=== PATIENT | male | born 1970 | race Caucasian/White ===

== ENCOUNTER 2018-08-12 11:52 | Emergency (ER) | payer OTHER, SELFPAY ==
[2018-08-12 11:53] VITALS: BP 153/94; PULSE 78; RESP 16; TEMP 36.2; O2SAT 97; BMI 29.5
--- NOTE | 2018-08-12 12:20 | ED.VIS.GEN ---
History of Present Illness Chief Complaint: Upper Extremity Injury Informant: Patient Onset: Hours - <1 Context: Sudden Onset - caught himself while almost falling off a ladder Quality: pain and felt a pop Location: distal right anterior arm Current Severity: Mild Maximum Severity: Moderate Worsened by: flexing arm Relieved by: remaining still, ice pack application Associated Symptoms: none Narrative: Patient states as soon as he caught himself, he felt pain and a pop at his distal biceps and states that there was a valley in that area, like he ruptured the tendon. It also felt like the tendon traveled up his arm. He notes with this feels like because he had a similar rupture of the biceps on the right side in the past, but it was 1 of the proximal tendons. He did not have surgery for that but saw Dr. Reyes. Past Medical History - Allergies and Home Meds Allergies/Adverse Reactions: Allergies Penicillins [PCN] Allergy (Verified 08/12/18 11:55) Hives Primary Care Physician: Geno Patiño NP-C [Primary Care Provider] - Past Medical History: None Smoking Status: Current every day smoker Review of Systems Musculoskeletal: Reports: Extremity Pain. Denies: Back pain Neurological: Denies: Weakness, Parasthesia, Numbness Physical Exam Vital Signs/Narrative: Vital Signs Temp Pulse Resp BP Pulse Ox 08/12/18 11:53 97.2 F L 78 16 153/94 H 97 Inital Vital Signs reviewed: Yes General: Well nourished, Well developed Head: Normocephalic, Atraumatic Extremities: Tenderness - Left bicep, which is bulging compared with the right, along with deficit where the distal tendon should be inserting at the antecubital fossa. No bony tenderness., - - Full range of motion, able to flex the left bicep but with pain. Skin: Normal color, No rash, No Trauma, - - Erythematous volar left forearm and arm where her ice pack has been applied Neurological: Alert, Oriented x3, Cranial nerves II-XII grossly intact, Normal Strength, Normal Sensation Diagnostic/Tx/Re-eval - Medical Decision Making Patient placed in a sling and given naproxen, discussed with Dr. Khan who agrees with this management, analgesics, and close outpatient evaluation just after the weekend. ED Disposition - Plan for ED Patient: Disposition: Home or Assisted Living Chief Complaint: Upper Extremity Injury Diagnosis: Rupture of left distal biceps tendon Instructions: ED Contusion Upper Ext Prescriptions: traMADol [Ultram] 50 mg PO Q4H PRN PRN 2 Days #10 tab PRN Reason: Pain Referrals: Jay Khan MD [STAFF PHYSICIAN] - 08/14/18 (call for appt) Additional Instructions: -Use sling as needed. No lifting with left upper extremity. -Take daily ibuprofen, and a prescription as needed for additional pain. May add Tylenol to this if needed. -Ice pack to affected area as needed.
[2018-08-12] MEDS: Naproxen 500 MG Tablet PO (12:26)
[2018-08-12 12:41] VITALS: RESP 16
--- NOTE | 2018-08-12 12:41 | ED.RN ---
REVIEWED D/C INSTRUCTIONS, FOLLOW UP CARE, PRESCRIPTION, AND S/S THAT WOULD WARRANT A RETURN TO THE ED WITH PT. PT VERBALIZED AN UNDERSTANDING AND DENIES FURTHER QUESTIONS FOR THIS RN. PT SKIN P/W/D, RESP EVEN AND UNLABORED, PT A&O X 3, NO DISTRESS NOTED.
== END 2018-08-12 12:43 | disposition home or self-care (01) ==
LOC: ED 12:42
PROVIDERS: Emergency Provider Emergency Medicine; Family Provider Nurse Practitioner; PCP Nurse Practitioner
DX: S46.211A Strain of muscle, fascia and tendon of other parts of biceps, right arm, initial encounter (principal); F17.200 Nicotine dependence, unspecified, uncomplicated; Z79.899 Other long term (current) drug therapy; W11.XXXA Fall on and from ladder, initial encounter; Y93.89 Activity, other specified; Y92.89 Other specified places as the place of occurrence of the external cause; Y99.8 Other external cause status
CPT/HCPCS: 99283

== ENCOUNTER 2018-08-22 11:38 | Day surgery (SDC) | payer OTHER, SELFPAY ==
[2018-08-22] VITALS (7 sets, daily range): BP systolic 100–127; BP diastolic 61–85; PULSE 58–66; RESP 14–16; TEMP 36.2–36.3; O2SAT 92–98; BMI 29.5
--- NOTE | 2018-08-22 13:30 | RAD_ITS ---
STUDY: X-RAY - LEFT ELBOW REASON FOR EXAM: Male, 48 years old. Intraoperative assessment TECHNIQUE: One limited view of the elbow was obtained. COMPARISON: None. FINDINGS: A limited image of the left elbow obtained intraoperatively shows a small piece of hardware adjacent to the proximal radius and ulna. Fluoroscopy time 5.8 seconds. Cumulative dose 0.21 mGy. RAD/Elbow 2 Views IMPRESSION: A limited view of the left elbow was obtained intraoperatively. Electronically Signed: Rocio Arizmendi MD at 19:48 EST Tel Direct: [phone], Service support ,
[2018-08-22] MEDS: Bupivacaine Mpf 0.5% 30 ML VIAL (15:33)
--- NOTE | 2018-08-22 16:04 | PCM.OPRPT ---
Report of Operation Date of Procedure: 08/22/18 Pre-Operative Diagnosis: Left distal biceps tendon rupture Post-Operative Diagnosis: Left distal biceps tendon rupture Surgery/Procedure Performed:: Left distal biceps tendon repair Description of Surgical Findings:: Site of pain was verified with fluoroscopy at the radial tuberosity city weighmaster: Vic Fine Type of Anesthesia:: General Anesthesiologist: Juan Silva Special Medications: 600 mg clindamycin Specimen's removed: None Estimated Blood Loss (mL): 5 mL Fluids Replaced: 1500 mL crystalloid Description of Procedure: On the date of the procedure patient's left upper extremity was marked in the preoperative area. Patient was taken back to the operating room where there transferred to the table in supine position. Anesthesia assumed control of the C-spine airway and remained to control throughout the remainder of the procedure. Anesthesia was administered using an LMA and general anesthetic. Left upper extremity was then prepped in a sterile fashion after all bony prominences identified well-padded. Surgeon scrubbed while the extremity was being prepped Upon reentering the room the left upper extremity was draped in a sterile orthopedic fashion draping out the entire upper extremity. Incision was marked out horizontally just distal to the antecubital fossa crease. Timeout was called and wound agreed upon the side, the site, the procedure be performed, patient's identity and antibiotics given. Incision was taken down through skin and blunt dissection was taken down to subcutaneous tissues fat down to fascia. Once we identified the tract of the biceps tendon rupture we could palpate distally to the radial tuberosity. We then palpated proximally and using retractors were able to identify the distal biceps tendon rupture. The tendon was pulled from the wound and an Arthrex FiberWire fiber loop was used to make a whipstitch using a fiber more passes. The sutures were then brought out the end in the end of the bulbous tendon was trimmed. The tendon was measured at 8 mm. At this time we then directed our attention distally. The wrist was placed in supination and Army-Kimball retractors were used to expose the radial tuberosity. No retractors were placed over the radial aspect of the radial neck. Once we palpated this area the guidewire was placed through the radial tuberosity. Live x-ray was used to verify placement of the pin and bicortical penetration. The initial pin was placed at the proximal edge of the tuberosity and we placed it once more at the central portion of the tuberosity using live fluoroscopy. Once this was in appropriate position the 8 mm acorn drill was used to drill the near cortex. The Endobutton was fastened into place and placed through both cortices. The Endobutton was flipped the elbow was flexed and the Endobutton was tightened down until the tendon was down into the bony trough. Once this was completed a free needle was used to tie the FiberWire back down on itself through the tendon. The wound was then copiously irrigated out with normal saline. The elbow was now allowed to go back into full extension. Wound was then closed with 2-0 Vicryl and Monocryl for final skin closure along with Steri-Strips. Xeroform dressing was placed. Compressive dressing was placed. Posterior splint was placed with elbow at 90 degrees. Patient was awakened by anesthesia and transferred to PACU for recovery. Postoperative plan patient will wear the splint for 2 weeks. He will come out of the splint for range of motion passive and active with physical therapy from weeks 2-6. At his 2-week postop visit we will begin strengthening. Grafts/Implants Used: Arthrex Endobutton - Complications None - Admit VTE Documentation VTE Present on Admission: No VTE Mechan Device Prophylaxis: SCD's VTE Pharm Prophylaxis ordered?: No Reason prophylaxis not ordered:: Treatment Not Indicated
--- NOTE | 2018-08-22 16:11 | OP.PCM_ITS ---
Report of Operation Date of Procedure: 08/22/18 Pre-Operative Diagnosis: Left distal biceps tendon rupture Post-Operative Diagnosis: Left distal biceps tendon rupture Surgery/Procedure Performed:: Left distal biceps tendon repair Description of Surgical Findings:: Site of pain was verified with fluoroscopy at the radial tuberosity program manager: Vic Fine Type of Anesthesia:: General Anesthesiologist: Juan Silva Special Medications: 600 mg clindamycin Specimen's removed: None Estimated Blood Loss (mL): 5 mL Fluids Replaced: 1500 mL crystalloid Description of Procedure: On the date of the procedure patient's left upper extremity was marked in the preoperative area. Patient was taken back to the operating room where there transferred to the table in supine position. Anesthesia assumed control of the C-spine airway and remained to control throughout the remainder of the procedure. Anesthesia was administered using an LMA and general anesthetic. Left upper extremity was then prepped in a sterile fashion after all bony p rominences identified well-padded. Surgeon scrubbed while the extremity was being prepped Upon reentering the room the left upper extremity was draped in a sterile orthopedic fashion draping out the entire upper extremity. Incision was marked out horizontally just distal to the antecubital fossa crease. Timeout was called and wound agreed upon the side, the site, the procedure be performed, pa tient's identity and antibiotics given. Incision was taken down through skin and blunt dissection was taken down to subcutaneous tissues fat down to fascia. Once we identified the tract of the biceps tendon rupture we could palpate distally to the radial tuberosity. We then palpated proximally and using retractors were able to identify the distal biceps tendon rupture. The tendon was pulled from the wound and an Arthrex FiberWire fiber loop was used to make a whipstitch using a fiber more passes. The sutures were then brought out the end in the end of the bulbous tendon was trimmed. The tendon was measured at 8 mm. At this time we then directed our attention distally. The wrist was placed in supination and Army-Terral retractors were used to expose the radial tuberosity. No retractors were placed over the radial aspect of the radial neck. Once we palpated this area the guidewire was placed through the radial tuberosity. Live x-ray was used to verify placement of the pin and bi cortical penetration. The initial pin was placed at the proximal edge of the tuberosity and we placed it once more at the central portion of the tuberosity using live fluoroscopy. Once this was in appropriate position the 8 mm acorn drill was used to drill the near cortex. The Endobutton was fastened into place and placed through both cortices. The Endobutton was flipped the elbow was flexed and the Endobutton was tightened down until the tendon was down into the bony trough. Once this was completed a free needle was used to tie the FiberWire back down on itself through the tendon. The wound was then copiously irrigated out with normal saline. The elbow was now allowed to go back into full extension. Wound was then closed with 2-0 Vicryl and Monocryl for final skin closure along with Steri-Strips. Xeroform dressing was placed. Compressive dressing was placed. Posterior splint was placed with elbow at 90 degrees. Patient was awakened by anesthesia and transferred to PACU for recovery. Postoperative plan patient will wear the splint for 2 weeks. He will come out of the splint for range of motion passive and active with physical therapy from weeks 2-6. At his 2-week postop visit we will begin strengthening. Grafts/Implants Used: Arthrex Endobutton - Complications None - Admit VTE Documentation VTE Present on Admission: No VTE Mechan Device Prophylaxis: SCD's VTE Pharm Prophylaxis ordered?: No Reason prophylaxis not ordered:: Treatment Not Indicated
== END 2018-08-22 17:30 | disposition home or self-care (01) ==
LOC: SDC 11:39 → AC 11:39
PROVIDERS: Family Provider Nurse Practitioner; PCP Nurse Practitioner; Referring Provider Specialist; Visit Provider Specialist
PROC: (CPT 24341; principal; 2018-08-22 13:15)
DX: S46.212A Strain of muscle, fascia and tendon of other parts of biceps, left arm, initial encounter (principal); E03.9 Hypothyroidism, unspecified; F17.200 Nicotine dependence, unspecified, uncomplicated; E66.3 Overweight; Z68.29 Body mass index [BMI] 29.0-29.9, adult; Z79.899 Other long term (current) drug therapy; W11.XXXA Fall on and from ladder, initial encounter; Y93.89 Activity, other specified; Y92.89 Other specified places as the place of occurrence of the external cause; Y99.8 Other external cause status
CPT/HCPCS: 24341; 73070; 76000; J7120; J2405

== ENCOUNTER 2019-01-30 20:27 | Emergency (ER) | payer OTHER, SELFPAY ==
[2018-08-22 11:54] VITALS: BMI 29.5
[2019-01-30 20:28] VITALS: BP 146/79; PULSE 83; RESP 17; TEMP 36.3; O2SAT 97; BMI 30.1
[2019-01-30 20:35] VITALS: PULSE 76; RESP 15; O2SAT 95; O2SAT 96
--- NOTE | 2019-01-30 20:35 | EKG12_ITS ---
Test Reason : CP Blood Pressure : / mmHG Vent. Rate : 076 BPM Atrial Rate : 076 BPM P-R Int : 174 ms QRS Dur : 082 ms QT Int : 406 ms P-R-T Axes : 018 -09 062 degrees QTc Int : 456 ms Sinus rhythm with frequent Premature ventricular complexes Otherwise normal ECG Confirmed by THOMAS REYNOSO ([id number]), editorial clerk JESSICA LEWIS ([id number]) on 02/05/2019 2:16:46 PM Referred By: Confirmed By:YUKI REYNOSO
--- NOTE | 2019-01-30 20:35 | RAD_ITS ---
STUDY: X-RAY CHEST REASON FOR EXAM: Male, 48 years old. Chest pain TECHNIQUE: Single frontal view of the chest. COMPARISON: 05/12/2016 FINDINGS: The lungs are clear and expanded. There is no demonstrated pleural abnormality. Stable cardiomediastinal silhouette. Normal mediastinum and gonzález. Normal visualized pulmonary arteries. Normal visualized aortic arch and descending thoracic aorta. Normal visualized thoracic spine. Normal visualized ribs, clavicles, and shoulders. There is no demonstrated abnormality of the visualized soft tissue structures of the upper abdomen. RAD/Chest 1 View (Portable) IMPRESSION: No acute pulmonary findings. Electronically Signed: James Leung MD at 21:02 EDT Tel , Service support ,
[2019-01-30 21:02] LABS: Absolute Lymphocyte Count 3.07 X10^3/ul (0.83-4.51); Absolute Neutrophil Count 4.3 X10^3/uL (2.0-7.7); Basophil# 0.06 X10^3/uL; Basophil% 0.7 % (0-1); Eosinophil# 0.26 X10^3/uL; Eosinophils% 2.9 % (0-5); Hematocrit 39.4 % (40-54); Hemoglobin 13.7 g/dl (13.0-16.5); Lymphocyte # 3.07 X10^3/ul (4.0); Lymphocyte % 34.5 % (19-41); Mean Corp Hgb Conc 34.8 g/gl (32-36); Mean Corpuscular Hgb 29.9 pg (27.0-32.0); Mean Platelet Vol. 9.6 fl (6.2-12.0); Monocyte# 1.24 X10^3/uL; Monocyte% 13.9 % (0-10); Neutrophil # 4.25 X10^3/uL (2.7-7.7); Neutrophil % 47.8 % (47-70); POSITIVE COUNT NO; POSITIVE DIFFERENTIAL NO; POSITIVE MORPHOLOGY NO; Platelet Count 217 K/mm3 (150-450); RBC Distribution Width CV 13.3 % (11.6-14.6); RBC Distribution Width SD 41.9 fl (35.1-43.9); Red Blood Count 4.58 M/mm3 (4.6-6.2); White Blood Count 8.9 K/mm3 (4.4-11.0)
[2019-01-30 21:18] VITALS: BP 132/98; PULSE 75
[2019-01-30 21:18] LABS: Anion Gap 6 (5-15); BUN 14 mg/dL (7-18); BUN/Creat Ratio 14.9 RATIO (10-20); Calcium,Total 8.8 mg/dL (8.5-10.1); Chloride 108 mmol/L (98-107); Creatinine, Serum 0.94 mg/dL (0.70-1.30); EST Glomerular Filtration Rate 90 mL/min (>60); Est Glom Filt Rate - Afr Amer 109 mL/min (>60); Estimated Creatinine Clearance 98.15 ml/min; Glucose 96 mg/dL (74-106); Potassium 3.7 mmol/L (3.5-5.1); Sodium Level 141 mmol/L (136-145)
[2019-01-30 21:25] LABS: D-Dimer Quantitative (DVT/PE) < 0.27 FEU/ug/m (0.27-0.49)
--- NOTE | 2019-01-30 21:44 | ED.VISSUMM ---
- ER Visit Summary Date of Service: 01/30/19 Chief Complaint: [Chest pressure] History of Present Illness: The patient is a 48 M [presents the emergency department chest pressure that started 2 weeks ago. Patient states is been continuous over that time. Patient states that he has been somewhat short of breath with activity. Patient states he used to run all the time however he tore his bicep muscle last August and was sidelined and was not running just recently got back into it. Patient states that he has been under normal some amount of stress recently he is undergoing marriage counseling and his is again. 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 Patient also has a rental that needs the lawn cod and a new screen door and just starting to feel overwhelmed. Patient denies any suicidal ideation. Denies recent travel or surgery. He denies any fever or recent illness.] Physical Examination: [HEENT-PERRLA, EOMI. Cranial nerves II through XII grossly intact. TMs clear. Mucous membranes moist. No adenopathy. Cardiovascular-regular rate and rhythm with occasional ectopy. Lungs-clear to auscultation, chest wall stable without crepitus or subcu emphysema Abdomen-normoactive bowel sounds, soft, nontender, no rebound or rigidity, no peritoneal signs. Extremities-intact ?4, normal range of motion, normal pulses, atraumatic] Test Results: [EKG obtained arrival shows sinus rhythm with a ventricular rate of 76 bpm with occasional PVCs.] CBC with differential and a white count of 8.9, chemistries unremarkable, troponin less than 0.015., D-dimer is less than 27. Chest x-ray was unremarkable. Emergency Department Course and Treatment: [Patient received nitroglycerin which she thinks may have helped a little bit but he also has a headache now.] Treatment Plan: [I discussed with patient that it was unclear the etiology of his symptoms however given that he has low risk for cardiac disease and his YENIFER risk score is a 1 related to the fact that he took aspirin today I feel he is low risk especially given that he has had persistent and continuous chest pressure for 2 weeks. I did recommend admission and repeat stress testing however he states that he does not feel this discomfort is related to his heart and is refusing admission. I saw the patient in 2016 for the same complaint and at that time he signed out AGAINST MEDICAL ADVICE. Patient ended up having an outpatient stress test and echo that were both normal and he states the pain eventually went away.] I will give patient a prescription for Ativan as needed. Disposition: [Discharged home in stable condition patient advised to return if worsening pain, increasing shortness of breath, or conditions worsen anyway.] Impression: [Chest pain-etiology uncertain] This note was generated with [employer] dictation software. It may contain incorrect words, spelling, and punctuation that were not noted in review of the chart prior to signing ED Disposition - Plan for ED Patient: Referrals: Geno Patiño, [facility] [employer] [facility] [Primary Care Provider] -
--- NOTE | 2019-01-30 21:48 | ED.DCSUM_ITS ---
- ER Visit Summary Date of Service: 01/30/19 Chief Complaint: [Chest pressure] History of Present Illness: The patient is a 48 M [presents the emergency department chest pressure that started 2 weeks ago. Patient states is been continuous over that time. Patient states that he has been somewhat short of b reath with activity. Patient states he used to run all the time however he tore his bicep muscle last August and was sidelined and was not running just recently got back into it. Patient states that he has been under normal some amount of stress recently he is undergoing marriage counseling and his is again. 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 Patient also has a rental that needs the lawn cod and a new screen door and just starting to feel overwhelmed. Patient denies any suicidal ideation. Denies recent travel or surgery. He denies any fever or recent illness.] Physical Examination: [HEENT-PERRLA, EOMI. Cranial nerves II through XII grossly intact. TMs clear. Mucous membranes moist. No adenopathy. Cardiovascular-regular rate and rhythm with occasional ectopy. Lungs-clear to auscultation, chest wall stable without crepitus or subcu emphysema Abdomen-normoactive bowel sounds, soft, nontender, no rebound or rigidity, no peritoneal signs. Extremities-intact ?4, normal range of motion, normal pulses, atraumatic] Test Results: [EKG obtained arrival shows sinus rhythm with a ventricular rate of 76 bpm with occasional PVCs.] CBC with differential and a white count of 8.9, chemistries unremarkable, troponin less than 0.015., D-dimer is less than 27. Chest x-ray was unremarkable. Emergency Department Course and Treatment: [Patient received nitroglycerin which she thinks may have helped a little bit but he also has a headache now.] Treatment Plan: [I discussed with patient that it was unclear the etiology of his symptoms however given that he has low risk for cardiac disease and his YENIFER risk score is a 1 related to the fact that he took aspirin today I feel he is low risk especially given that he has had persistent and continuous chest pres sure for 2 weeks. I did recommend admission and repeat stress testing however he states that he does not feel this discomfort is related to his heart and is refusing admission. I saw the patient in 2016 for the same complaint and at that time he signed out AGAINST MEDICAL ADVICE. Patient ended up having an outpatient stress test and echo that were both normal and he states the pain eventually went away.] I will give patient a prescription for Ativan as needed. Disposition: [Discharged home in stable condition patient advised to return if worsening pain, increasing shortness of breath, or conditions worsen anyway.] Impression: [Chest pain-etiology uncertain] This note was generated with [employer] dictation software. It may contain incorrect words, spelling, and punctuation that were not noted in review of the chart prior to signing ED Disposition - Plan for ED Patient: Referrals: Geno Patiño, [facility] [Primary Care Provider] -
--- NOTE | 2019-01-30 21:48 | ED.DEP ---
ED Disposition - Plan for ED Patient: Instructions: ED Chest Pain Atypical Unkn Cause, ED Stress React Prescriptions: Lorazepam [Ativan] 1 mg PO TID PRN PRN #10 tab PRN Reason: Anxiety Referrals: Geno Patiño NP-C [Primary Care Provider] - 3-5 Days
[2019-01-30] MEDS: LORazepam 1 MG Tablet PO (22:05)
[2019-01-30 22:07] VITALS: BP 140/97; PULSE 68; RESP 16; O2SAT 98
== END 2019-01-30 22:07 | disposition home or self-care (01) ==
LOC: ED 21:05
PROVIDERS: Emergency Provider Emergency Medicine; Family Provider Nurse Practitioner; PCP Nurse Practitioner
DX: R07.9 Chest pain, unspecified (principal)
CPT/HCPCS: 71045; 80048; 84484; 85025; 85379; 93005; 99285; A4216

== ENCOUNTER 2019-05-17 15:27 | Emergency (ER) | payer OTHER, SELFPAY ==
[2019-05-17 14:56] VITALS: BMI 30.1
[2019-05-17 15:27] VITALS: BP 152/77; PULSE 85; RESP 20; TEMP 36.4; O2SAT 95; BMI 31.3
--- NOTE | 2019-05-17 15:47 | EKG12_ITS ---
Test Reason : IRREG RYTHUM Blood Pressure : / mmHG Vent. Rate : 084 BPM Atrial Rate : 084 BPM P-R Int : 176 ms QRS Dur : 088 ms QT Int : 394 ms P-R-T Axes : 028 -22 067 degrees QTc Int : 465 ms Sinus rhythm with frequent Premature ventricular complexes Otherwise normal ECG Confirmed by EDGARDO PIEDRA, THOMAS ([id number]), electronic news gathering editor TAY LINDER ([id number]) on 05/21/2019 1:06:02 PM Referred By: DIANA Confirmed By:YUKI REYNOSO MD
[2019-05-17 15:58] VITALS: O2SAT 8
--- NOTE | 2019-05-17 16:14 | ED.VIS.CHEST ---
History of Present Illness Chief Complaint: Palpitations Informant: Patient Narrative: Patient presenting for evaluation secondary to palpitations. Patient reports that he has been undergoing work-up for this by his primary care physician, and currently was getting a plaque test in radiology and was experiencing palpitations. Patient has been intermittently dealing with palpitations, and states that he has been worked up for this in the past. He reports that he had a stress test in June 2016 which he passed very easily. He reports however that recently he has been having some increased issues with exertional dyspnea. He denies that he currently is having any chest pain, states that he intermittently will get some chest tightness but this is not exertional. The palpitations will come and go and do not seem to have any sort of exacerbating or relieving factors. He has attributed them to having significant increased stress in the past, he also does have a history of thyroid disease but no recent changes in his medications. He does not drink a ton of caffeine. No DVT or PE risk factors. Review of systems otherwise negative. Past Medical History - Allergies and Home Meds Allergies/Adverse Reactions: Allergies Penicillins [PCN] Allergy (Verified 05/17/19 15:29) [facility] Primary Care Physician: Geno Patiño NP-C [Primary Care Provider] - Past Medical History: - - Palpitations Lives: Spouse/ Significant Other Smoking Status: Former smoker Drugs: None Review of Systems All systems negative except as indicated Cardiovascular: Reports: Chest pain, Palpitations Respiratory: Reports: Dyspnea Physical Exam Vital Signs/Narrative: Vital Signs Temp Pulse Resp BP Pulse Ox 05/17/19 15:58 8 05/17/19 15:27 97.5 F L 85 20 H 152/77 H 95 General: Well nourished, Well developed, No Acute Distress Head: Normocephalic, Atraumatic Eyes: Perrl, EOMI ENT: Moist mucous membranes, No rhinorrhea Neck: Supple, Nontender Cardiovascular: Regular rate, Regular rhythm, No murmurs, - - Frequent extrasystoles Respiratory: No distress, CTA bilaterally, Chest nontender Abdomen: Soft, Nontender, Nondistended, Normal bowel sounds Back: Nontender, Normal Inspection Extremities: Nontender, No edema Skin: Normal color, No rash Neurological: Alert, Oriented x3, Cranial nerves II-XII grossly intact, Normal Strength, Normal Sensation Psychological: Normal affect, Normal Mood Diagnostic/Tx/Re-eval - Rhythm Strip Rhythm Strip: Sinus Rhythm Rate: 84 Ectopy: PVC(s) - Occasional bigeminy, trigeminy, and frequent PVCs with no evidence of nonsustained VT or couplets - EKG Initial EKG Interpretation: - - Sinus rhythm of [address] segments normal T waves. Normal intervals. Frequent PVCs are noted. - Medical Decision Making Patient presented secondary to palpitations. On telemetry monitoring patient was having frequent PVCs, occasional bigeminy or trigeminy with runs of sinus rhythm. Patient's electrolytes were normal troponin was negative. He has no DVT or PE risk factors. Patient has been undergoing work-up for this, this is not a new problem, and I do not believe that he requires admission at this point. Patient will be placed on a low-dose of beta-jose, he will be given cardiology for follow-up. All questions were answered and the patient was discharged. ED Disposition - Plan for ED Patient: Disposition: Home or Assisted Living Instructions: Premature Ventricular Contractions Prescriptions: Metoprolol(XL)Succ [Toprol Xl (Beta Jose)] 12.5 mg PO DAILY #30 tab Prescription Printed Referrals: Ion Funez MD [STAFF PHYSICIAN] - As soon as possible
[2019-05-17 16:19] LABS: Absolute Lymphocyte Count 2.35 X10^3/uL (0.83-4.51); Absolute Neutrophil Count 4.1 X10^3/uL (2.0-7.7); Basophil# 0.08 X10^3/uL; Eosinophil# 0.27 X10^3/uL; Eosinophils% 3.5 % (0-5); Hematocrit 42.5 % (40-54); Hemoglobin 14.4 g/dL (13.0-16.5); Lymphocyte # 2.35 X10^3/ul (4.0); Lymphocyte % 30.7 % (19-41); Mean Corp Hgb Conc 33.9 g/dL (32-36); Mean Corpuscular Hgb 29.8 pg (27.0-32.0); Mean Platelet Vol. 9.9 fl (6.2-12.0); Monocyte# 0.82 X10^3/uL; Monocyte% 10.7 % (0-10); NRBC Flagged by Analyzer 0 % (0-5); Neutrophil # 4.12 X10^3/uL (2.7-7.7); Neutrophil % 53.8 % (47-70); Platelet Count 243 K/mm3 (150-450); RBC Distribution Width CV 12.6 % (11.6-14.6); RBC Distribution Width SD 40.6 fl (35.1-43.9); Red Blood Count 4.83 M/mm3 (4.6-6.2); White Blood Count 7.7 K/mm3 (4.4-11.0)
[2019-05-17 16:29] LABS: Anion Gap 5 (5-15); BUN 15 mg/dL (7-18); Calcium,Total 8.9 mg/dL (8.5-10.1); Chloride 108 mmol/L (98-107); Creatinine, Serum 1.25 mg/dL (0.70-1.30); EST Glomerular Filtration Rate 65 mL/min (>60); Est Glom Filt Rate - Afr Amer 79 mL/min (>60); Estimated Creatinine Clearance 73.81 ml/min; Glucose 101 mg/dL (74-106); Magnesium 2.3 mg/dL (1.6-2.6); Potassium 3.9 mmol/L (3.5-5.1); Sodium Level 143 mmol/L (136-145); Thyroid Stim Hormone (TSH) 0.87 uIU/mL (0.358-3.74)
[2019-05-17 16:35] VITALS: BP 127/99; PULSE 80; RESP 23; O2SAT 95
[2019-05-17 17:18] VITALS: BP 147/87; PULSE 79; O2SAT 96
[2019-05-17 17:32] VITALS: BP 137/86; PULSE 80; RESP 14; O2SAT 97
--- NOTE | 2019-05-17 17:47 | ED.RN ---
CALLED PHARMACY REGARDING PO LOPRESSOR.
[2019-05-17] MEDS: Metoprolol Tartrate 25 MG Tablet 12.5 MG PO (17:53)
== END 2019-05-17 17:55 | disposition home or self-care (01) ==
PROVIDERS: Emergency Provider Emergency Medicine; Family Provider Nurse Practitioner; PCP Nurse Practitioner
DX: I49.3 Ventricular premature depolarization (principal); E07.9 Disorder of thyroid, unspecified; Z87.891 Personal history of nicotine dependence; Z79.899 Other long term (current) drug therapy
CPT/HCPCS: 80048; 83735; 84443; 84484; 85025; 93005; 99284; A4216

== ENCOUNTER → 2019-05-17 | Outpatient (CLI) | payer SELFPAY, OTHER ==
[2019-05-17 14:56] VITALS: BP 113/76; PULSE 54; RESP 16; O2SAT 98; BMI 30.1
--- NOTE | 2019-05-17 15:44 | NURSING ---
1510 pt states he has not been feeling well for a while (3years), states heart rate fluctuates from low to high, during his stay in radiology heart rate was as low as 34 and high as 88. bijeminy heart rate with monofocal pvc. pt is depressed and states he is tired of not feeling well. Talked with cryptologic linguist office and reviewed pt with Cheryl Moreland and she advised to send patient to ER to be further evaluated. Pt transported to ER via wheelchair, re port given to RN and pt hooked to a monitor. attending physcians office notifed of unable to calcium scoring and pt was sent to ER.
== END | disposition home or self-care (01) ==
PROVIDERS: Family Provider Nurse Practitioner; PCP Nurse Practitioner; Referring Provider Nurse Practitioner; Visit Provider Nurse Practitioner
DX: M54.2 Cervicalgia (principal)

== ENCOUNTER → 2019-05-18 | Outpatient (CLI) | payer OTHER, SELFPAY ==
[2019-05-17 15:27] VITALS: BMI 31.3
== END | disposition home or self-care (01) ==
LOC: PSN 14:00
PROVIDERS: Family Provider Nurse Practitioner; PCP Nurse Practitioner; Referring Provider Nurse Practitioner; Visit Provider Nurse Practitioner
DX: R94.31 Abnormal electrocardiogram [ECG] [EKG] (principal)
CPT/HCPCS: 93225; 93226

== ENCOUNTER → 2019-05-24 | Outpatient (CLI) | payer OTHER, SELFPAY ==
[2019-05-17 15:27] VITALS: BMI 31.3
--- NOTE | 2019-05-24 14:29 | STRESSREP_ITS ---
Stress Test Report Date: 05/24/2019 Procedure: Exercise tolerance test/imaging study Indications: Abnormal EKG Consent: Per the patient Procedure: The patient exercised on a Joshua protocol for 11 minutes and 30 seconds achieving a peak heart rate of 150 bpm (87 % predicted maximal heart rate) with a peak blood pressure 180/82 mmHg and a peak MET capacity of 13.4 METs. The baseline ECG demonstrated normal sinus rhythm, nonspecific ST-T changes. The peak exercise ECG demonstrated no significant ischemic changes. EKG during recovery revealed no significant ischemic changes There were occasional PVCs at rest which were also present during exercise and in the recovery period times as couplets. The functional capacity was considered excellent for age. There was [no complaint of chest discomfort during exercise or recovery]. The examination was discontinued secondary to dyspnea. Impression: 1. Technically adequate (percent predicted maximal heart rate greater than 85%) exercise tolerance test 2. Stress test is negative for exercise-induced EKG changes of ischemia 3. The test test is negative for exercise-induced chest pain 4. Functional capacity is excellent for age 5. Nuclear images pending Myocardial perfusion imaging study: Technique: The patient was injected with 14.8 mCi of technetium 99m Cardiolite and subsequently rest SPECT Cardiolite nuclear imaging was obtained in the horizontal long, vertical long, and short axis views. The patient exercised on a Joshua protocol. Please see above for details. The patient was injected with 44.5 mCi of technetium 99m Cardiolite and subsequently stress SPECT Cardiolite nuclear imaging was obtained in the horizontal long, vertical long, and short axis views. A gated Cardiolite study at peak stress was obtained. Interpretation: Rest and stress SPECT Cardiolite nuclear imaging status post realignment, normalization, and attenuation correction, demonstrates overall normal myocardial radioisotope uptake. The gated Cardiolite study demonstrates no significant regional wall motion abnormalities. The reported LVEF is 48 %. Impression: 1. There is no evidence of significant ischemia or infarction. 2. The gated Cardiolite study reports an LVEF of 48 %. This note was generated with [employer] software. It may contain incorrect words, spelling, and punctuation that were not noted in checking the note before signing.
== END | disposition home or self-care (01) ==
LOC: CVS 06:28
PROVIDERS: Family Provider Nurse Practitioner; PCP Nurse Practitioner; Referring Provider Nurse Practitioner; Visit Provider Nurse Practitioner
DX: R94.31 Abnormal electrocardiogram [ECG] [EKG] (principal)
CPT/HCPCS: 78452; 93017; A9500; A4216

== ENCOUNTER → 2019-05-30 | Outpatient (CLI) | payer OTHER, SELFPAY ==
[2019-05-17 15:27] VITALS: BMI 31.3
--- NOTE | 2019-05-30 15:04 | ECHOD_ITS ---
Reason For Study: Abnormal Stress Procedure This was a 2D Doppler, Color Flow transthoracic echocardiogram. The exam was of adequate technical quality. Exam performed in department. Left Ventricle Normal LV size. Left ventricular systolic function is normal. The estimated ejection fraction is 55 %. No evidence for diastolic dysfunction. No regional wall motion abnormalities noted. Right Ventricle Normal RV size. Normal systolic function. Atria Normal left atrium. Normal right atrium. No doppler evidence for ASD. Mitral Valve There is no mitral annular calcification. Mild diffuse mitral valve thickening. Trivial mitral valve insufficiency. Tricuspid Valve Normal tricuspid valve. Trivial tricuspid valve insufficiency. Aortic Valve Trisinus/trileaflet aortic valve. Normal aortic valve. Pulmonic Valve The pulmonic valve is not well visualized. Trivial pulmonic valve insufficiency. Great Vessels Normal sized aortic root. Pericardium/Pleural No pericardial effusion. MMode/2D Measurements & Calculations LVIDd: 5.3 cm IVSd: 1.0 cm LA dimension: 4.2 cm LVIDs: 3.7 cm LVPWd: 0.95 cm RVDd: 4.0 cm FS: 29.8 % LAV(MOD-bp): 50.2 ml LA A4 area: 17.4 cm2 RA A4 area: 15.1 cm2 LAV(MOD-bp) Indexed: 23.5 ml/m2 LAV(MOD-sp2): 51.8 ml LAV(MOD-sp4): 42.2 ml Time Measurements MV dec time: 0.28 sec Doppler Measurements & Calculations MV E max larry: 71.7 cm/sec Lat Peak E' Larry: 11.6 cm/sec Med Peak E' Larry: 9.0 cm/sec MV A max larry: 52.1 cm/sec E/E' lat: 6.2 E/E' med: 7.9 MV E/A: 1.4 MV V2 max: 96.6 cm/sec MV P1/2t max larry: 96.6 cm/sec Ao V2 max: 135.6 cm/sec MV max P.7 mmHg MV P1/2t: 71.2 msec Ao max P.4 mmHg MV V2 mean: 52.0 cm/sec MV dec slope: 397.6 cm/sec2 MV mean P.3 mmHg MVA(P1/2t): 3.1 cm2 MV V2 VTI: 28.7 cm LV V1 max: 93.6 cm/sec PA V2 max: 133.9 cm/sec LV V1 max P.5 mmHg Interpretation Summary Left ventricular systolic function is normal. The estimated ejection fraction is 55 %. Mild diffuse mitral valve thickening. Trivial mitral valve insufficiency. Trivial tricuspid valve insufficiency. Trivial pulmonic valve insufficiency. No evidence for diastolic dysfunction. Ordering Physician: Geno Patiño Referring Physician: Geno Patiño Performed By: Dale Shrestha RCS
== END | disposition home or self-care (01) ==
PROVIDERS: Family Provider Nurse Practitioner; PCP Nurse Practitioner; Referring Provider Nurse Practitioner; Visit Provider Nurse Practitioner
DX: R94.31 Abnormal electrocardiogram [ECG] [EKG] (principal); R00.2 Palpitations
CPT/HCPCS: 93306

== ENCOUNTER → 2019-06-11 | Outpatient (CLI) | payer OTHER, SELFPAY ==
[2019-05-17 15:27] VITALS: BMI 31.3
[2019-06-06 10:05] VITALS: BMI 31.1
--- NOTE | 2019-06-11 12:05 | US_ITS ---
STUDY: THYROID ULTRASOUND REASON FOR EXAM: Male, 49 years old. Tenderness of the neck and thyroid. History of hypothyroidism. TECHNIQUE: Ultrasound evaluation of the thyroid was performed with real-time and static michel-scale imaging. COMPARISON: None. FINDINGS: RIGHT LOBE: The right lobe of the thyroid gland measures 4.0 x 1.7 x 1.8 cm. There is a homogeneous echotexture. There are no demonstrated solid, cystic or complex lesions. Normal vascularity on Doppler imaging. LEFT LOBE: The left lobe of the thyroid gland measures 4.0 x 2.0 x 1.7 cm. There is a homogeneous echotexture. There are no demonstrated solid, cystic or complex lesions. Annual vascularity and Doppler imaging. ISTHMUS: The isthmus measures 0.4 cm. The regional lymph nodes are normal. US/Thyroid IMPRESSION: Normal ultrasound examination of the thyroid. Electronically Signed: Fredy Mtz DO at 23:05 EDT Tel [phone], Service support ,
--- NOTE | 2019-06-11 12:50 | CT_ITS ---
STUDY: CARDIAC CALCIUM SCORING - CT CHEST REASON FOR EXAM: Male, 49 years old. Screening. RADIATION DOSAGE (If Supplied By Facility): CTDIvol = ( 12.19 ) mGy, DLP = ( 536.35 ) mGycm TECHNIQUE: Axial non-enhanced images were acquired through the heart for the sole purpose of measuring coronary artery calcium. Individualized dose optimization techniques were used for this CT. COMPARISON: None. FINDINGS: This portion of the report is being generated solely for the evaluation of noncoronary artery structures which have been assessed on plain another report. The visualized lungs are clear without mass or infiltrate. The heart is normal in size. Normal pericardium. Normal visualized mediastinum and gonzález. Normal visualized pulmonary arteries. Normal visualized thoracic aorta. Degenerative changes of the thoracic spine. Normal upper abdomen. CT/Limited Chest CT w/CCTA IMPRESSION: No visualized anatomic abnormality. Electronically Signed: Fredy Mtz DO at 23:58 EDT Tel [phone], Service support ,
[2019-06-11 12:58] VITALS: BP 124/77; PULSE 69; RESP 18; TEMP 36.4; O2SAT 97; BMI 30.1
--- NOTE | 2019-06-12 13:08 | CA.SCORE ---
Calcium Scoring Date of Study:: 06/11/19 Coronary Calcium Scoring: High-resolution Computed Tomographic imaging of the chest was performed on [06/11/2019], with particular attention paid to the coronary arteries. Images from the examination were analyzed for the presence and extent of coronary artery calcification , using coronary calcium quantification software. The patient tolerated the procedure well and there were no complications. The results of the coronary calcification analysis are provided below. - Findings Left Main (LM): 0 Left Anterior Descending (LAD): 0 Left Circumflex (LCX): 0 Right Coronary Artery (RCA): 0 Total Agatston Score: 0 Percentile Rankin Calcium Scoring Interpretation: 0 No identifiable atherosclerotic plaque. Very low cardiovascular disease risk. <5% chance of presence coronary artery disease A Negative Examination 1-10 Minimal Plaque burden. Significant coronary artery disease very unlikely. 11-100 Mild plaque burden. Likely mild or minimal coronary atherosclerosis. 101-400 Moderate plaque burden Moderate non-obstructive coronary artery disease highly likely. Over 400 Extensive plaque burden. High likelihood of at least one significant coronary stenosis (>50% diameter) Conclusion: The total calcium score (0) is below the 25th percentile for men between the ages of 50 and 54. (Exact percentile calculated to be 0%; this means 0% of the population is a similar calcium score and 99% of the population is a higher calcium score than this patient.) Full evaluation of cardiac risk including assessment of all conventional risk factors, and the scores and percentile rankings reported herein should be evaluated in this context.
== END | disposition home or self-care (01) ==
PROVIDERS: Family Provider Nurse Practitioner; PCP Nurse Practitioner; Referring Provider Nurse Practitioner; Visit Provider Nurse Practitioner
DX: M54.2 Cervicalgia (principal); E78.00 Pure hypercholesterolemia, unspecified; Z13.6 Encounter for screening for cardiovascular disorders
CPT/HCPCS: 75571; 76380; 76536

== ENCOUNTER → 2019-07-06 | Outpatient (CLI) | payer OTHER, SELFPAY ==
[2019-06-06 10:05] VITALS: BMI 31.1
[2019-06-11 12:58] VITALS: BMI 30.1
== END | disposition home or self-care (01) ==
LOC: PSN 13:09
PROVIDERS: Family Provider Nurse Practitioner; PCP Nurse Practitioner; Referring Provider Internal Medicine Cardiovascular Disease; Visit Provider Internal Medicine Cardiovascular Disease
DX: I49.3 Ventricular premature depolarization (principal)
CPT/HCPCS: 93225; 93226

== ENCOUNTER → 2019-11-07 | Outpatient (CLI) | payer OTHER, SELFPAY ==
[2019-09-19 11:29] VITALS: BMI 31.1
== END | disposition home or self-care (01) ==
LOC: PSN 14:04
PROVIDERS: Family Provider Nurse Practitioner; PCP Nurse Practitioner; Referring Provider Nurse Practitioner Family; Visit Provider Nurse Practitioner Family
DX: R00.2 Palpitations (principal); Z98.890 Other specified postprocedural states
CPT/HCPCS: 93225; 93226

== ENCOUNTER → 2020-04-14 | Outpatient (CLI) | payer OTHER, SELFPAY ==
[2020-02-20 09:05] VITALS: BMI 31.5
--- NOTE | 2020-04-14 07:58 | US_ITS ---
STUDY: THYROID ULTRASOUND REASON FOR EXAM: Male, 49 years old. LEFT NECK PAIN TECHNIQUE: Ultrasound evaluation of the thyroid was performed with real-time and static michel-scale imaging. COMPARISON: Comparison is made with prior examination of June 11, 2019. FINDINGS: RIGHT LOBE: The right lobe of the thyroid gland measures 4.3 cm x 2.2 cm x 1.7 cm. There is a homogeneous echotexture. There are no demonstrated solid, cystic or complex lesions. LEFT LOBE: The left lobe of the thyroid gland measures 4.2 cm x 2 cm x 1.3 cm. There is a homogeneous echotexture. There are no demonstrated solid, cystic or complex lesions. ISTHMUS: The isthmus measures 3.0 mm. The regional lymph nodes are normal. US/Thyroid IMPRESSION: Normal ultrasound examination of the thyroid. Electronically Signed: Eduardo Robertson, at 11:13 EDT , Service support ,
== END | disposition home or self-care (01) ==
PROVIDERS: PCP Nurse Practitioner; Referring Provider Nurse Practitioner; Visit Provider Nurse Practitioner
DX: M54.2 Cervicalgia (principal)
CPT/HCPCS: 76536

== ENCOUNTER → 2021-09-03 07:47 | Outpatient (CLI) | payer OTHER, SELFPAY ==
--- NOTE | 2021-09-03 07:56 | US_ITS ---
STUDY: ABDOMINAL ULTRASOUND - RIGHT UPPER QUADRANT REASON FOR VISIT: Male, 51 years old ABD PAIN TECHNIQUE: Ultrasound evaluation of the right upper quadrant was performed with real-time and static michel-scale imaging. TECHNICAL QUALITY: Adequate. COMPARISON: None. FINDINGS: Liver: The liver measures 15.3 cm. There is increased echogenicity consistent with fatty infiltration. The bile ducts are within normal limits. There is hepatic color flow. The direction of portal flow is hepatopetal. There is no demonstrated mass lesion. Gallbladder: Normal distended gallbladder. The gallbladder wall measures 1.6 mm. There is a negative sonographic Zee''s sign. There is no pericholecystic fluid. There are no gallstones. Common Bile Duct (C.B.D.): The common bile duct measures 2.7 mm. Pancreas: Normal size of the head, body and tail of the pancreas. There is normal echogenicity of the pancreas. There is no demonstrated pancreatic mass or cyst. Right Kidney: Normal size of the right kidney. The right kidney measures 11 cm x 5.6 cm x 5.9 cm. Normal renal cortex. The right cortex measures 1.6 cm. There is no demonstrated renal mass or cyst. There is no right hydronephrosis. US/Abdomen Limited IMPRESSION: Normal right upper quadrant ultrasound examination. Electronically Signed: Eduardo Robertson MD at 14:28 EST , Service support ,
== END ==
PROVIDERS: PCP Nurse Practitioner; Referring Provider Nurse Practitioner; Visit Provider Nurse Practitioner
DX: I45.10 Unspecified right bundle-branch block (principal); R10.9 Unspecified abdominal pain
CPT/HCPCS: 76705; 93225; 93226

== ENCOUNTER → 2021-10-01 16:41 | Outpatient (CLI) | payer OTHER, SELFPAY ==
--- NOTE | 2021-10-01 16:45 | CT_ITS ---
STUDY: CT ABDOMEN AND PELVIS WITH CONTRAST REASON FOR EXAM: Male, 51 years old. ABD PAIN RADIATION DOSAGE (If Supplied By Facility): CTDIvol = ( 18.73 ) mGy, DLP = ( 1224.22 ) mGycm TECHNIQUE: Transaxial images were obtained from the dome of the diaphragm to the symphysis pubis with oral contrast. Oral and amp; IV Readi-CAT and amp; 100mL Isovue-300 was administered. Sagittal and coronal images were reconstructed. Individualized dose optimization techniques were used for this CT. COMPARISON: Ultrasound 09/03/2021 FINDINGS: The visualized lung bases are unremarkable. The visualized portions of the heart are within normal limits. Normal liver. Normal gallbladder and extrahepatic biliary system. Normal spleen. Normal pancreas. Normal bilateral adrenal glands. Normal right kidney. Normal left kidney. Normal visualized stomach. Normal small intestine. Normal colon. The appendix is visualized and appears normal. Normal abdominal aorta. Normal inferior vena cava. Normal retroperitoneum. Normal urinary bladder. There is a small umbilical hernia containing fat. Normal osseous structures. CT/Abdomen/Pelvis WITH Contrast IMPRESSION: Normal enhanced CT of the abdomen and pelvis. Electronically Signed: Bernardo Turner MD at 10:12 EST Tel , Service support ,
[2021-10-01 17:15] LABS: CREATININE FINGERSTICK 0.8 mg/dL (0.70-1.30); EGFR FINGERSTICK > 60.0000 mL/min (>60)
== END ==
PROVIDERS: PCP Nurse Practitioner; Referring Provider Nurse Practitioner; Visit Provider Nurse Practitioner
DX: R10.9 Unspecified abdominal pain (principal)
CPT/HCPCS: 74177; Q9967

== ENCOUNTER 2022-01-26 06:23 | Outpatient (CLI) | payer OTHER, SELFPAY ==
--- NOTE | 2022-01-26 06:28 | ECHOD_ITS ---
Reason For Study: Chest Pain Procedure This was a 2D Doppler, Color Flow transthoracic echocardiogram. Exam performed in department. Left Ventricle Normal LV size. Left ventricular systolic function is lower limits of normal. The estimated ejection fraction is 50 %. Transmitral doppler flow suggestive of impaired relaxation of left ventricle. No regional wall motion abnormalities noted. Right Ventricle Normal RV size. Normal systolic function. Atria Normal left atrium. Normal right atrium. No doppler evidence for ASD. Mitral Valve There is no mitral annular calcification. Normal mitral valve. Trivial mitral valve insufficiency. Tricuspid Valve Normal tricuspid valve. Trivial tricuspid valve insufficiency. Unable to estimate RV systolic pressure due to insufficient tricuspid regurgitant envelope. Aortic Valve Trisinus/trileaflet aortic valve. Normal aortic valve. Pulmonic Valve The pulmonic valve is not well visualized. Trivial pulmonic valve insufficiency. Great Vessels The aortic root is not well visualized. Pericardium/Pleural No pericardial effusion. MMode/2D Measurements & Calculations LVIDd: 5.3 cm IVSd: 1.2 cm LA dimension: 3.9 cm LVIDs: 4.1 cm LVPWd: 0.99 cm RVDd: 3.9 cm FS: 21.3 % LAV(MOD-bp): 49.3 ml LA A4 area: 18.1 cm2 RA A4 area: 15.5 cm2 LAV(MOD-bp) Indexed: 22.7 ml/m2 LAV(MOD-sp2): 48.7 ml LAV(MOD-sp4): 47.3 ml Time Measurements MV dec time: 0.22 sec Doppler Measurements & Calculations MV E max larry: 63.8 cm/sec Lat Peak E' Larry: 9.8 cm/sec Med Peak E' Larry: 6.6 cm/sec MV A max larry: 86.4 cm/sec E/E' lat: 6.5 E/E' med: 9.6 MV E/A: 0.74 MV V2 max: 86.3 cm/sec MV P1/2t max larry: 73.9 cm/sec Ao V2 max: 126.8 cm/sec MV max P.0 mmHg MV P1/2t: 73.2 msec Ao max P.4 mmHg MV V2 mean: 53.6 cm/sec MV dec slope: 295.5 cm/sec2 MV mean P.3 mmHg MVA(P1/2t): 3.0 cm2 MV V2 VTI: 20.7 cm LV V1 max: 93.4 cm/sec PA V2 max: 101.1 cm/sec LV V1 max P.5 mmHg ECHO/Echo Complete Interpretation Summary Left ventricular systolic function is lower limits of normal. The estimated ejection fraction is 50 %. Trivial mitral valve insufficiency. Trivial tricuspid valve insufficiency. Trivial pulmonic valve insufficiency. Unable to estimate RV systolic pressure due to insufficient tricuspid regurgita nt envelope. Transmitral doppler flow suggestive of impaired relaxation of left ventricle Ordering Physician: Ion Funez Referring Physician: Geno Patiño Performed By: Dale Shrestha RCS
--- NOTE | 2022-01-26 08:03 | STRESSREP ---
Stress Test Report Date: 01-26-2022 Procedure: Exercise tolerance test/imaging study Indications: Chest pain; abnormal ECG/right bundle branch block PVCs; status post EPS/RFA Consent: Per the patient Procedure: The patient exercised on a Joshua protocol for 11 minutes and 30 seconds completing Stage III and 2 minutes and 30 seconds of Stage IV achieving a peak heart rate of 162 bpm (96% % predicted maximal heart rate) with a peak blood pressure 204/72 mmHg and a peak MET capacity of 13 METs. The baseline ECG demonstrated normal sinus rhythm; right bundle branch block. The peak exercise ECG demonstrated somatic/motion artifact with no obvious ECG changes. There were occasional PVCs pretest, during exercise, and recovery. The functional capacity was considered good. There was no complaint of chest discomfort during exercise or recovery. The examination was discontinued secondary to dyspnea. Impression: 1. Technically adequate (percent predicted maximal heart rate greater than 85%) exercise tolerance test 2. Peak exercise ECG with somatic/motion artifact and continued right bundle branch block with no obvious ECG change 3. There were occasional PVCs pretest, during exercise, and recovery 4. Nuclear images pending Myocardial perfusion imaging study: Technique: The patient was injected with 14.8 mCi of technetium 99m Cardiolite and subsequently rest SPECT Cardiolite nuclear imaging was obtained in the horizontal long, vertical long, and short axis views. The patient exercised on a Joshua protocol for 11 minutes and 30 seconds completing Stage III and 2 minutes and 30 seconds of Stage IV achieving a peak heart rate of 162 bpm (96% % predicted maximal heart rate) with a peak blood pressure 204/72 mmHg and a peak MET capacity of 13 METs. The patient was injected with 44.9 mCi of technetium 99m Cardiolite and subsequently stress SPECT Cardiolite nuclear imaging was obtained in the horizontal long, vertical long, and short axis views. A gated Cardiolite study at peak stress was obtained. Interpretation: Rest and stress SPECT Cardiolite nuclear imaging status post realignment, normalization, and attenuation correction, demonstrates the appearance of relative uniform tracer uptake and myocardial perfusion appearing within normal limits. There is end systolic thickening and brightening. The gated Cardiolite study demonstrates myocardial thickening and inward wall motion. The reported LVEF is 50%. Impression: 1. Rest and stress SPECT Cardiolite nuclear imaging demonstrate relative uniform tracer uptake and myocardial perfusion appearing within normal limits. 2. The gated Cardiolite study reports an LVEF of 50%. This note was generated with [employer] software. It may contain incorrect words, spelling, and punctuation that were not noted in checking the note before signing.
== END 2022-01-26 23:59 | disposition home or self-care (01) ==
PROVIDERS: PCP Nurse Practitioner; Referring Provider Internal Medicine Cardiovascular Disease; Visit Provider Internal Medicine Cardiovascular Disease
DX: R07.9 Chest pain, unspecified (principal); I49.3 Ventricular premature depolarization; E78.00 Pure hypercholesterolemia, unspecified; R94.31 Abnormal electrocardiogram [ECG] [EKG]; Z98.890 Other specified postprocedural states
CPT/HCPCS: 78452; 93017; 93306; A9500; A4216

== ENCOUNTER → 2025-01-25 | Outpatient (CLI) | payer OTHER, SELFPAY ==
[2025-01-25 13:13] LABS: Absolute Lymphocyte Count 2.19 X10^3/uL (0.83-4.51); Absolute Neutrophil Count 4.1 X10^3/uL (2.0-7.7); Basophil# 0.08 X10^3/uL; Basophil% 1.1 % (0-1); Eosinophils% 2.6 % (0-5); Hematocrit 41.4 % (40-54); Hemoglobin 13.9 g/dL (13.0-16.5); Lymphocyte # 2.19 X10^3/ul (0.83-4.51); Mean Corp Hgb Conc 33.6 g/dL (32-36); Mean Corpuscular Hgb 29.3 pg (27.0-32.0); Mean Corpuscular Volume 87.3 fL (80-94); Mean Platelet Vol. 10.4 fl (6.2-12.0); Monocyte# 0.99 X10^3/uL; Monocyte% 13.1 % (0-10); NRBC Flagged by Analyzer 0 % (0-5); Neutrophil # 4.09 X10^3/uL (2.7-7.7); Neutrophil % 54.1 % (47-70); Platelet Count 273 K/mm3 (150-450); RBC Distribution Width CV 13.1 % (11.6-14.6); RBC Distribution Width SD 41.9 fl (35.1-43.9); Red Blood Count 4.74 M/mm3 (4.6-6.2); White Blood Count 7.6 K/mm3 (4.4-11.0)
[2025-01-25 14:18] LABS: Hemoglobin A1c 5.9 % (<=5.6)
[2025-01-25 15:27] LABS: ALB/GLOB Ratio 1.4 RATIO (0.9-2.4); AST(SGOT) 19 U/L (<=37); Alanine Aminotransfer ALT/SGPT 15 U/L (<=46); Albumin, Serum 4.6 g/dL (3.5-5.0); Alkaline Phosphatase 61 U/L (40-129); Anion Gap 12 (5-15); BUN 15 mg/dL (4-19); BUN/Creat Ratio 16.1 RATIO (10-20); Calcium,Total 9.6 mg/dL (7.6-11.0); Chloride 101 mmol/L (98-108); Cholesterol 238 mg/dL (<=200); Creatinine, Serum 0.95 mg/dL (0.70-1.20); EST Glomerular Filtration Rate 95 (>60); Globulin 3.2 g/dL (2.2-4.2); Glucose 78 mg/dL (70-99); High Density Lipoprotein 52 mg/dL; Low Density Lipoprotein Calc. 168 mg/dL; Potassium 4.1 mmol/L (3.3-5.1); Protein, Total 7.8 g/dL (5.9-8.4); Sodium Level 138 mmol/L (133-145); Total Bilirubin 0.55 mg/dL (0.00-1.30); Triglycerides 92 mg/dL; Very Low Density Lipoprotein 18 mg/dL (5-40); cholesterol:hdl ratio screen 4.59
== END | disposition home or self-care (01) ==
LOC: LAB 11:34
PROVIDERS: PCP Family Medicine; Referring Provider Family Medicine; Visit Provider Family Medicine
DX: I10 Essential (primary) hypertension (principal); I49.3 Ventricular premature depolarization; R73.01 Impaired fasting glucose
CPT/HCPCS: 36415; 80053; 80061; 83036; 84443; 85025